=== PATIENT | female | born 1930 | race Caucasian/White ===

== ENCOUNTER 2017-05-26 03:53 | Emergency (ER) | payer OTHER, MEDICARE ==
[~2017-05-26] VITALS: Ht 160 cm; Wt 67.8 kg
[2017-05-26 03:56] VITALS: TEMP 36.5; Ht 160 cm; Wt 67.8 kg
[2017-05-26] MEDS ORDERED: LABETALOL HCL IV 5 MG/ML 20ML IV STA ×2 (04:10→06:41)
[2017-05-26] MEDS ORDERED: ATEN-173 PO (04:23)
[2017-05-26] MEDS ORDERED: ASPI81TA28 PO (04:24)
[2017-05-26] MEDS ORDERED: POTA10CA28 PO (04:25)
[2017-05-26 04:35] LABS: BASO % 0.4 %; BASO ABS # 0.03 K/uL (0-0.2); COMPLETE YES; EOS % 2.3 %; HEMATOCRIT 43.2 % (37-47); IG% 0.2 %; LYMPH % 26.1 %; LYMPH ABS # 2.15 K/uL (1.2-3.4); MEAN CELL VOLUME 88.2 fL (80-100); MEAN CORPUSCULAR HEMOGLOBIN 29.6 pg (25-34); MEAN CORPUSCULAR HGB CONC 33.6 g/dl (32-36); MONO % 8.4 %; NEUT % 62.6 %; PLATELET COUNT 232 K/uL (130-400); WHITE BLOOD COUNT 8.25 K/uL (4.8-10.8)
[2017-05-26 04:43] LABS: BLOOD UREA NITROGEN 17 mg/dl (7-18); BUN/CREATININE RATIO 16.9 (10-20); CARBON DIOXIDE 25 mmol/L (21-32); CHLORIDE 107 mmol/L (98-107); GLUCOSE 103 mg/dl (70-99); POTASSIUM 3.8 mmol/L (3.5-5.1); SODIUM 142 mmol/L (136-145)
[2017-05-26] MEDS ORDERED: ASPIRIN 324 MG CHEW PO STA (05:38)
--- NOTE | 2017-05-26 05:44 | EMERGENCY ROOM VISIT NOTE ---
History Report prepared by Fabianoibgian: Catarino Arreguin Under the Supervision of: Dr. Aldo Roberts M.D. First contact with patient: 04:01 Chief Complaint: PAIN (GENERALIZED) Stated Complaint: BURNING SENSATION DOWN LEFT SIDE History of Present Illness The patient is a 86 year old female who presents to the Emergency Room with complaints of constant left sided pain beginning shortly prior to arrival. She states that the sensation is throughout her entire left side. She describes the sensation as a "burning numbness". The patient has experienced similar symptoms before in her left side, but states that her previous sensations were "more like a tingling". She denies any chest pain, weakness, or fevers. She notes that she has had some diarrhea and a mild headache. The patient has a history of anxiety and notes that she took Xanax tonight. She has a history of HTN and a meningioma. Source of History: patient Onset: Shortly prior to arrival Position: other (entire left side) Quality: other ("burning numbness") Timing: constant Associated Symptoms: + diarrhea, No fevers, No chest pain, No weakness Review of Systems See HPI for pertinent positives & negatives. A total of 10 systems reviewed and were otherwise negative. Past Medical & Surgical Medical Problems: (1) Anxiety (2) HTN (hypertension) (3) Meningioma Family History No pertinent family history stated. Social History Smoking Status: Former Smoker Marital Status: Current/Historical Medications Scheduled Aspirin (Aspirin Ec), 81 MG PO DAILY Atenolol (Tenormin), 25 MG PO DAILY Potassium Chloride (Micro-K Ext Rel), Unknown Dose PO Q2D Allergies Coded Allergies: Ciprofloxacin (Unverified Allergy, Unknown, t-cell reaction, 05/26/17) Fluconazole (Unverified Allergy, Unknown, unknown, 05/26/17) Uncoded Allergies: SULFA (Allergy, Unknown, unknown, 05/26/17) Physical Exam Vital Signs Date Time Temp Pulse Resp B/P (MAP) Pulse Ox O2 Delivery O2 Flow Rate FiO2 05/26/17 07:08 62 17 138/86 98 Room Air 05/26/17 06:56 60 15 160/83 98 Room Air 05/26/17 06:46 69 18 172/81 98 Room Air 05/26/17 05:45 141/106 05/26/17 05:43 70 17 97 05/26/17 05:38 68 18 94 05/26/17 05:31 175/88 05/26/17 05:23 64 15 96 05/26/17 05:03 67 20 95 05/26/17 05:01 64 16 181/80 96 Room Air 05/26/17 05:01 162/79 05/26/17 04:58 64 19 181/80 96 05/26/17 04:39 87 168/82 97 05/26/17 04:38 71 17 96 05/26/17 04:33 71 05/26/17 04:32 196/89 05/26/17 03:56 36.5 87 20 208/93 98 Room Air Physical Exam GENERAL: Patient is anxious appearing, in minimal distress. HEENT: No acute trauma, normocephalic atraumatic, mucous membranes moist, no nasal congestion, no scleral icterus. NECK: No stridor, no adenopathy, no meningismus, trachea is midline. LUNGS: No dyspnea. Clear to auscultation and equal bilaterally. No wheeze, no rhonchi. HEART: Regular rate and rhythm. No murmurs, rubs, gallops appreciated. ABDOMEN: Soft, nontender, bowel sounds positive, no masses appreciated, no peritonitis. BACK: No midline tenderness, no CVA tenderness EXTREMITIES: Normal motion all extremities, no cyanosis, no edema. NEUROLOGIC: Alert and oriented, no acute motor or sensory deficits, no focal weakness, cranial nerves grossly intact. SKIN: No rash, no jaundice, no diaphoresis. Medical Decision & Procedures ER Provider Diagnostic Interpretation: CT results per statrad and my review. CT HEAD: No evidence of acute infarct, hemorrhage, mass or edema. Chronic small vessel ischemic disease and senescent changes. Mild mucosal thickening in the paranasal sinuses. No acute osseous abnormality. X ray results are stated below per my interpretation: Chest: 1 view: No infiltrate, no effusion, normal cardiac border. Laboratory Results 05/26/17 04:10 Red Blood Count 4.90, Mean Corpuscular Volume 88.2, Mean Corpuscular Hemoglobin 29.6, Mean Corpuscular Hemoglobin Concent 33.6, Mean Platelet Volume 10.0, Neutrophils (%) (Auto) 62.6, Lymphocytes (%) (Auto) 26.1, Monocytes (%) (Auto) 8.4, Eosinophils (%) (Auto) 2.3, Basophils (%) (Auto) 0.4, Neutrophils # (Auto) 5.17, Lymphocytes # (Auto) 2.15, Monocytes # (Auto) 0.69, Eosinophils # (Auto) 0.19, Basophils # (Auto) 0.03 05/26/17 04:10 Test 05/26/17 04:10 White Blood Count 8.25 K/uL (4.8-10.8) Red Blood Count 4.90 M/uL (4.2-5.4) Hemoglobin 14.5 g/dL (12.0-16.0) Hematocrit 43.2 % (37-47) Mean Corpuscular Volume 88.2 fL (80-100) Mean Corpuscular Hemoglobin 29.6 pg (25-34) Mean Corpuscular Hemoglobin Concent 33.6 g/dl (32-36) Platelet Count 232 K/uL (130-400) Mean Platelet Volume 10.0 fL (7.4-10.4) Neutrophils (%) (Auto) 62.6 % Lymphocytes (%) (Auto) 26.1 % Monocytes (%) (Auto) 8.4 % Eosinophils (%) (Auto) 2.3 % Basophils (%) (Auto) 0.4 % Neutrophils # (Auto) 5.17 K/uL (1.4-6.5) Lymphocytes # (Auto) 2.15 K/uL (1.2-3.4) Monocytes # (Auto) 0.69 K/uL (0.11-0.59) Eosinophils # (Auto) 0.19 K/uL (0-0.5) Basophils # (Auto) 0.03 K/uL (0-0.2) RDW Standard Deviation 43.4 fL (36.4-46.3) RDW Coefficient of Variation 13.4 % (11.5-14.5) Immature Granulocyte % (Auto) 0.2 % Immature Granulocyte # (Auto) 0.02 K/uL (0.00-0.02) Anion Gap 10.0 mmol/L (3-11) Est Creatinine Clear Calc Drug Dose 38.7 ml/min Estimated GFR () 59.9 Estimated GFR (Non- 51.7 BUN/Creatinine Ratio 16.9 (10-20) Troponin I < 0.015 ng/ml (0-0.045) Laboratory results as reviewed by me. Medications Administered Medications (Trade) Dose Ordered Sig/Quinn Route Start Time Stop Time Status Last Admin Dose Admin Labetalol HCl (Normodyne IV) 10 mg NOW STAT IV 05/26/17 04:10 05/26/17 04:11 DC 05/26/17 04:28 10 MG Aspirin (Aspirin Chew) 324 mg NOW STAT PO 05/26/17 05:38 05/26/17 05:39 DC 05/26/17 05:57 324 MG Labetalol HCl (Normodyne IV) 10 mg NOW STAT IV 05/26/17 06:41 05/26/17 06:42 DC 05/26/17 06:54 10 MG Atenolol (Tenormin Tab) 25 mg NOW STAT PO 05/26/17 06:41 05/26/17 06:42 DC 05/26/17 06:52 25 MG ECG Indication: other (left side pain) Rate (beats per minute): 70 Rhythm: normal sinus Findings: 1st degree AV block, no acute ischemic change, no ectopy Change: Repeat ECG reveals a normal sinus rhythm with a rate of 70 bpm. 1st degree AV block seen, no ectopy or ischemic changes. No significant change from previous ECG. ED Course 0404: The patient was evaluated in room B10. A complete history and physical exam was performed. 0410: Ordered Normodyne 10 mg IV. 0538: Ordered Aspirin Chew 324 mg PO. 0535: Upon reevaluation, the patient is resting comfortably. Her pain is gone, but she has begun feeling a discomfort/paresthesia returning in her left shoulder radiating into her neck which began a few minutes ago. Her blood pressure has improved to 170/80. She denies any headaches. The patient is agreeable to hospitalist evaluation. Discussed results and treatment plan with the patient. She verbalized understanding and agreement with the treatment plan. The patient will be evaluated for further management. 0615: The patient is no longer sure if she would like to stay. 0632: I spoke with the patient's son. He notes that the patient has had similar symptoms occur many times in the past, and has been worked up extensively for them. He states that the patient follows with her manufacturing technician on these issues. The patient's son feels that the patient could get rapid and adequate evaluation quickly upon returning home to [place]. He would like a cardiac rule out. Medical Decision Differential: Benign Hypertension, Hypertensive Urgency/Emergency, Cardiovascular Pathology, Endocrine, Metabolic/Electrolyte, Renal Disease, Endorgan Damage, amongst other pathologies entertained. 86 yr old female arrives with complaint of left sided paresthesias in setting of HTN. She is from out of town. Admits anxiety history though both she and note no change in stressors and that this is not like her previous anxiety issues. Paresthesias occurred twice like this in last 15 yrs, none recently, no work-up recently. She has no neuro deficits, no trauma, no injuries, no other issues. Symptoms resolved with IV labetalol and improvement in BP. Patient with normal work-up, but then started developing left shoulder pain radiating to neck. EKG unchanged. Given ASA. Initial plan to come in for CVA ACS rule out, and hospitalist even contacted. She was not TPA candidate based on unknown exact time onset and lack of acute findings. No evidence of dissection. No evidence cardiac ischemia at this time. Patient unaware of if she has history 1st av block. Initially planned to bring in for further work-up and evaluation. Son called who is physician and notes that patient with this same set of symptoms previously. She has had extensive work-up for this with diagnosis being anxiety related. She follows with her manufacturing technician every 6 months with regular testing. He feels that if cardiac rule out in ED she will have rapid and adequate follow up with her providers as outpatient. Patient very much prefers this plan. Without neuro deficits nor active pain now seems reasonable to do rule out here. Repeat Trop planned for 6 hours post maximal symptoms. Made clear that this is not 100% proof that no stroke nor ACS even with rule out and no further symptoms. Aware of risks. Signed out to Dr Lau awaiting cardiac rule out. Consults Time Called: 0541 Consulting Physician: Dr. Cahvira -[facility] [place] Returned Call: 0510 Discussed the patient's case. The patient will be evaluated for further treatment and disposition. Impression Primary Impression: Paresthesia of left upper and lower extremity Additional Impression: HTN (hypertension) Scribe Attestation The scribe's documentation has been prepared under my direction and personally reviewed by me in its entirety. I confirm that the note above accurately reflects all work, treatment, procedures, and medical decision making performed by me. Departure Information Dispostion Home / Self-Care Referrals No Doctor, Assigned (PCP) Patient Instructions ED Hypertension Conf Out Of Control, [facility] Additional Instructions Return immediately if worsening symptoms, weakness, passing out, chest pain, vomiting, fevers or other concerns. You must follow up with your primary care provider in the next few days for further evaluation. Problem Qualifiers
--- NOTE | 2017-05-26 08:00 | DIAGNOSTIC IMAGING REPORT ---
CHEST ONE VIEW PORTABLE CLINICAL HISTORY: Hypertension. COMPARISON STUDY: No previous studies for comparison. FINDINGS: Lung volumes are normal. There is no consolidation to suggest pneumonia. No pneumothorax or pleural effusion is present. Pulmonary vascularity is normal. Mild left basilar opacity suggests atelectasis. Cardiomediastinal silhouette is normal. IMPRESSION: No acute cardiopulmonary findings. Electronically signed by: Levon Ulrich M.D. 05/26/2017 7:59 AM Dictated Date/Time: 05/26/2017 7:56 AM
--- NOTE | 2017-05-26 08:05 | DIAGNOSTIC IMAGING REPORT ---
CT OF THE HEAD WITHOUT CONTRAST CLINICAL HISTORY: Hypertension, left sided paresthesias. COMPARISON STUDY: No previous studies for comparison. CT DOSE: 614.27 mGy.cm TECHNIQUE: Helical axial images of the head were obtained without IV contrast. Automated exposure control was utilized for the study. FINDINGS: No acute intracranial hemorrhage is present. Ventricular system is normal for age. Basilar cisterns are patent. There are no extra-axial collections. There are no findings to suggest acute dural sinus thrombosis or acute territorial infarct. Note is made of a 1.3 cm ossific density contiguous within the inner table of the calvarium of the left frontal bone. This suggests an osteoma. There are no calvarial fracture. Visualized portions of the sinuses and mastoid air cells are clear. IMPRESSION: No acute intracranial findings. Electronically signed by: Levon Ulrich M.D. 05/26/2017 8:03 AM Dictated Date/Time: 05/26/2017 7:59 AM
--- NOTE | 2017-05-26 08:37 | EMERGENCY ROOM VISIT NOTE ---
ED Visit Note First contact with patient: 07:36 I received this patient at change of shift signout from Dr. Roberts. Please see his note for complete history and physical. The patient is an 86-year-old female who presented to the emergency department overnight. The patient had an acute onset of pain in her left leg. She states the pain was in her left ankle. The pain resolved without intervention but then the patient started noticing numbness and paresthesia over the left side of her body. She's had similar symptoms in the past and she states that she's had a neurologic workup in the past and these episodes have been associated with fluctuations in her blood pressure as well as anxiety. The patient did not appear to have any acute disease on CT the head. She has no focal neurologic deficit on my independent evaluation. She has no facial droop or weakness. The patient was also evaluated for the possibility that this could be a coronary syndrome equivalent. The patient's case was discussed with the [facility] hospitalist but when the patient was evaluated by the hospitalist the patient decided she did not wish to stay in the hospital. Dr. Roberts discussed the patient's findings with her son who is also a physician. The patient does not wish to stay in the hospital unless there is a cardiac abnormality. For this reason the patient was scheduled for a repeat troponin as well as repeat EKG in the emergency department. The patient was resting comfortably when I was evaluating her. I also discussed her findings with her . The patient was also very concerned about future traveling plans. I did encourage her to follow-up with her primary care physician when she returns home before traveling in June. She was also encouraged to rest and avoid any strenuous activity. She was also encouraged to continue all medications as prescribed and return to the emergency department immediately if symptoms change worsen or the need arises. The patient's EKGs were reviewed. Her initial EKG revealed sinus rhythm at 70 beats per minute. There was a first-degree AV block noted. There were no PVCs appreciated. No acute ST segment abnormalities were noted. Her second EKG revealed sinus rhythm at 70 beats per minute. There was a first-degree AV block noted. There is no significant change from the earlier tracing. The patient's third EKG revealed sinus rhythm at 64 beats per minute. There was a first- degree AV block noted. There were no acute ST segment abnormalities. There is no ectopy. The tracing was essentially unchanged from the earlier to tracings. The patient's troponins did not elevate on 2 different draws.
[2017-05-26 09:37] VITALS: BP 102/59; PULSE 62; O2SAT 96
[2017-05-26 12:04] LABS: CALCIUM 9.5 mg/dl (8.5-10.1)
== END 2017-05-26 09:38 | disposition home or self-care (01) ==
LOC: C.EDB 03:56
DX: R20.2 Paresthesia of skin (principal); I10 Essential (primary) hypertension; I44.0 Atrioventricular block, first degree; F41.9 Anxiety disorder, unspecified; Z87.891 Personal history of nicotine dependence; Z85.89 Personal history of malignant neoplasm of other organs and systems; Z79.82 Long term (current) use of aspirin; Z79.899 Other long term (current) drug therapy; Z88.2 Allergy status to sulfonamides; Z88.8 Allergy status to other drugs, medicaments and biological substances